=== PATIENT | female | born 1940 | race Caucasian/White ===

== ENCOUNTER 2020-03-26 08:06 | Outpatient (CLI) | payer MEDICARE, SELFPAY ==
--- NOTE | ~2020-03-26 | MM_ITS ---
EXAMINATION: MM screening marilia BI w nicolás HISTORY: Screening mammogram TECHNIQUE: Craniocaudal and mediolateral oblique 3-D tomosynthesis images were obtained and synthetic 2-D images were generated. CAD analysis was submitted and interpreted. COMPARISON: 09/29/2017, 09/16/2016, 12/17/2012 bilateral digital screening mammogram examinations BREAST PARENCHYMAL COMPOSITION: There are scattered areas of fibroglandular density. FINDINGS: There is no evidence of suspicious mass, calcification, or architectural distortion to sugg est malignancy in either breast. There has been no suspicious interval change. IMPRESSION: 1. No mammographic evidence of malignancy. 2. Recommend routine screening mammography in one year. BI-RADS Category 1: Negative Reviewed, dictated and finalized at location A.
== END 2020-03-26 08:07 | disposition home or self-care (01) ==
PROVIDERS: PCP Internal Medicine; Visit Provider Internal Medicine
DX: Z12.31 Encounter for screening mammogram for malignant neoplasm of breast (principal)
CPT/HCPCS: 77063; 77067

== ENCOUNTER 2021-08-23 00:31 | Inpatient (IN) | payer MEDICARE, SELFPAY ==
[2021-08-23] VITALS (9 sets, daily range): BP systolic 159–202; BP diastolic 79–117; PULSE 70–104; RESP 13–22; TEMP 35.8–36.6; O2SAT 95–99; BMI 34.7
--- NOTE | ~2021-08-23 | MR_ITS ---
EXAMINATION: MR brain/brain stem wo/w con EXAM DATE: 08/23/2021 16:57 INDICATION: Seizure. TECHNIQUE: Magnetic resonance imaging (MRI) of the brain/brain stem obtained without contrast. Sagit walt T1, axial diffusion, gradient echo (T2*), T1, T2, FLAIR sequences obtained. Patient was then inj ected with 18 cc intravenous Multihance contrast. Axial and coronal postcontrast T1 weighted sequence s obtained. Correlation is made to head CT earlier date. FINDINGS: Scattered small acute infarctions in the cerebellum bilaterally, the right occipital lobe, the right thalamus. There is mild microangiopathy. There is no acute hemorrhage seen on the T2*, a he mosiderin sensitive sequence. No intraparenchymal brain mass. The ventricles are normal in size. Th ere are no extra-axial collections. Flow voids are seen in the cerebral arteries on the T2-weighted sequences consistent with their expected patency. The right vertebral artery is dominant. Patient has had bilateral ocular lens surgery. Soft tissue is unremarkable. IMPRESSION: 1. Scattered small posterior circulation acute infarctions. 2. Mild microangiopathy. Reviewed, dictated and finalized at location G. CTOR OF PROGRAMMING
--- NOTE | ~2021-08-23 | CT_ITS ---
EXAMINATION: CT brain wo con DATE: 08/23/2021 00:57 INDICATION: Seizure TECHNIQUE: Computed tomography (CT) of the head was performed without intravenous contrast. The mA wa s adjusted according to patient size. Iterative reconstruction technique was employed. Exam dose: 68 1.00 mGy-cm total exam DLP. COMPARISON: 12/14/2004 CT brain FINDINGS: Vertebral and bilateral carotid siphon internal carotid artery calcification. There is nons pecific diminished attenuation of the cerebral white matter, likely due to chronic small vessel ische elly changes. There are bilateral basal ganglia chronic lacunar infarcts. No intracranial mass lesion or hemorrhage, midline shift or mass effect. No subdural or epidural rayo eugenia. No fracture or bone destruction of the cranial vault. IMPRESSION: Cerebral atherosclerosis and chronic small vessel ischemic changes of the cerebral white matter Bilateral chronic basal ganglia lacunar infarcts No acute intracranial finding Reviewed, dictated and finalized at Location A. Reviewed, dictated and finalized at location B. 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
--- NOTE | ~2021-08-23 | XR_ITS ---
EXAMINATION: XR chest 1V portable INDICATION: Altered mental status TECHNIQUE: Portable AP chest at 0056 hours COMPARISON: 12/14/2004 FINDINGS: The cardiac silhouette is enlarged. There are patchy airspace opacities of the right lung. No pleural effusion or pneumothorax is identified. IMPRESSION: 1. Enlargement of the cardiac silhouette which may be due to cardiomegaly and/or pericardial effusion . 2. Minimal airspace opacities of the right lung, consistent with atelectasis versus pneumonia. Reviewed, dictated and finalized at location A. OGEOLOGIST IMPRESSION: 1. Enlargement of the cardiac silhouette which may be due to cardiomegaly and/o r pericardial effusion. 2. Minimal airspace opacities of the right lung, consistent with atelectasis ve rsus pneumonia.
[2021-08-23 00:38] LABS: Glucose Point of Care 133 mg/dl (65-105)
--- NOTE | 2021-08-23 00:38 | ECG_ITS ---
Measurements Intervals [place] Rate: 76 P: NM: 0 QRS: 42 QRSD: 98 T: 32 QT: 419 QTc: 472 Interpretive Statements ATRIAL FIBRILLATION INCOMPLETE RIGHT BUNDLE BRANCH BLOCK BORDERLINE ST-T WAVE ABNORMALITY- DIFFUSE LEADS BASELINE ARTIFACT- I, II, III, AVF ABNORMAL ECG Electronically Signed On 08-23-2021 7:58:31 [employer]PECT[employer] by Hermann Crooks D.O.
--- NOTE | 2021-08-23 00:50 | ED.NEUROSD ---
HPI - Neuro Symptoms/Deficit General Chief Complaint: Suspected CVA Stated Complaint: ALTERED LOC Time Seen by Provider: 08/23/21 00:36 History of Present Illness HPI Narrative: Patient is a 81-year-old female who presents ER with altered mental status. Last known well was 11:45 PM on 08/22/2021. reports he was going to bed when he checked on her and she was not acting right. Patient is nonverbal at this time. Will not follow any commands. It was noted that her blood pressure was significantly elevated in the 200s systolic. Patient does have history of atrial fibrillation. She is on Xarelto. reports that patient had no complaints today and was having no issues. He does report that she had a nap earlier where she had some bleeding from her mouth. He believes she was grinding her teeth. She reports this happens to her intermittently. Related Data Home Medications Medication Instructions Recorded Confirmed aspirin 81 mg PO DAILY 08/23/21 atorvastatin 40 mg PO DAILY 08/23/21 carbidopa-levodopa tablet 08/23/21 dabigatran etexilate [Pradaxa] 75 mg PO BID 08/23/21 diltiazem HCl 180 mg PO DAILY 08/23/21 furosemide 20 mg PO DAILY 08/23/21 levothyroxine 125 mcg PO DAILY 08/23/21 omeprazole 08/23/21 paroxetine HCl 30 mg PO DAILY 08/23/21 propranolol 60 mg PO DAILY 08/23/21 rivaroxaban [Xarelto] mg 08/23/21 Allergies Allergy/AdvReac Type Severity Reaction Status Date / Time ERYTHROMYCIN LACTOBIONATE Allergy Mild RUPTURED Uncoded 08/23/21 04:14 ESOPHAGUS Review of Systems Review of Systems: ROS unobtainable: Yes unobtainable due to mental status [facility] Past Medical History Medical History (Updated 08/23/21 @ 06:23 by Heath Nation MD) Atrial fibrillation Depression History of CVA (cerebrovascular accident) Hypercholesterolemia Hypertension Mitral valve prolapse Parkinsons disease Surgical History Surgical History (Updated 08/23/21 @ 00:53 by Heath Nation MD) History of hysterectomy Social History Social History (Updated 08/23/21 @ 00:53 by Heath Nation MD) Smoking status: Unknown if ever smoked Exam Narrative: GENERAL: Well-appearing, well-nourished, and in no acute distress. HEAD: Normocephalic, atraumatic. EYES: PERRL and EOMI. ENT: Mucous membranes moist. CHEST: Clear to auscultation. No respiratory distress. HEART: Irregular regular rate and rhythm. Normal peripheral pulses. ABDOMEN: Soft, nontender, nondistended, normal active bowel sounds. EXTREMITIES: Normal range of motion. No edema. SKIN: Warm, dry, no rash. NEURO: Patient is awake alert. Will not follow commands. With sternal rub patient moves all extremities in response to pain. No facial droop. Unable to assess for drift. Course Course Emergency Course: Patient returning to normal baseline mental status. Blood pressure improved 161/83 mmHg. Patient has been able to perform NIH stroke scale exam without issue. Suspect patient may have had a seizure. Vital Signs Vital signs: Vital Signs Temperature 96.4 F L 08/23/21 00:30 Pulse Rate 78 08/23/21 00:30 Respiratory Rate 18 08/23/21 00:30 Blood Pressure 202/108 H 08/23/21 00:30 Pulse Oximetry 96 08/23/21 00:30 Temperature 96.4 F L 08/23/21 00:30 Pulse Rate 70 08/23/21 04:07 Respiratory Rate 17 08/23/21 04:07 Blood Pressure 182/90 H 08/23/21 04:07 Pulse Oximetry 97 08/23/21 04:07 MDM - Neuro Symptoms/Deficit Lab Data Result diagrams: 08/23/21 00:52 08/23/21 00:52 Labs: Lab Results 08/23/21 08/23/21 08/23/21 Range/Units 00:36 00:52 00:52 WBC 10.0 (4.5-10.0) K/mm3 RBC 4.79 (4.2-5.4) M/mm3 Hgb 14.5 (12.0-15.0) g/dL Hct 43.3 (37.0-47.0) % MCV 90.4 (80-100) fl MCH 30.3 (26-34) pg MCHC 33.5 (32-36) g/dl RDW 13.9 (11.5-14.5) % Plt Count 324 (150-375) k/mm3 MPV 10.5 H (7.4-10.4) fl Immature Gran % (Auto) 0.4 (0-0.
[2021-08-23] MEDS: hydrALAZINE HCL 20 MG/ML VIAL 10 MG IV PUSH (00:59)
[2021-08-23] MEDS: ONDANSETRON INJ 4 MG/2 ML VIAL IV PUSH ×3 (03:18→14:11)
[2021-08-23 03:20] LABS: INR 1.7; Partial Thromboplastin Time 35.4 SECONDS (22.3-36.8); Prothrombin Time 19.2 Seconds (11.1-14.7)
[2021-08-23 03:37] LABS: Basophils Absolute Auto 0.1 K/mm3 (0.0-0.1); Basophils Percent Auto 0.5 % (0.2-1.2); Eosinophils Absolute Auto 0.5 K/mm3 (0-0.3); Eosinophils Percent Auto 4.9 % (0-4.4); Hematocrit 43.3 % (37.0-47.0); Hemoglobin 14.5 g/dL (12.0-15.0); Immature Granulocyte Absolute 0.04 K/mm3 (0.00-0.031); Immature Granulocyte Percent A 0.4 % (0-0.5); Lymphocytes Absolute Auto 3.93 K/mm3 (0.9-3.2); Lymphocytes Percent Auto 39.4 % (18.3-44.2); Mean Corpuscular HGB Conc 33.5 g/dl (32-36); Mean Corpuscular Hemoglobin 30.3 pg (26-34); Mean Corpuscular Volume 90.4 fl (80-100); Mean Platelet Volume 10.5 fl (7.4-10.4); Monocytes Absolute Auto 0.9 K/mm3 (0.1-0.6); Monocytes Percent Auto 9.1 % (2.6-8.5); Neutrophils Absolute Auto 4.6 K/mm3 (1.3-6.7); Neutrophils Percent Auto 45.7 % (45.5-73.1); Platelet Count Result 324 k/mm3 (150-375); Red Blood Count 4.79 M/mm3 (4.2-5.4); Red Cell Distribution Width 13.9 % (11.5-14.5)
[2021-08-23 03:41] LABS: Add Urine Microscopic? YES; Appearance Urine Clear (Clear); Bilirubin Urine Negative (Negative); Blood Urine 1+ (Negative); Color Urine Straw (Yellow); Glucose Urine UA Negative (Negative); Ketones Urine Negative (Negative); Leukocyte Esterase Ur Negative LEU/UL (Negative); Mucus Urine Rare /lpf; Nitrate Urine Negative (Negative); Protein Urine 1+ mg/dL (Negative); Specific Grav Ur 1.011 (1.001-1.035); Urobilinogen Urine Negative mg/dL (<2.0); WBC Urine 0-3 /hpf
[2021-08-23 03:55] LABS: Alanine Aminotransferase < 6 U/L (4-35); Albumin Level 4.6 g/dL (3.5-5.1); Alkaline Phosphatase 126 U/L (38-126); Anion Gap 9 mmol/L (8-16); Aspartate Amino Transferase 24 U/L (14-36); Bilirubin,Total 0.6 mg/dL (0.2-1.3); Blood Urea Nitrogen 23 mg/dL (7-17); Calcium 9.2 mg/dL (8.4-10.2); Carbon Dioxide 27 mmol/L (22-30); Chloride 105 mmol/L (98-107); Estimated CRCL calculation 37 ml/min; Estimated Glomerular Filt Rate 43; Glucose 166 mg/dL (65-110); Potassium 3.9 mmol/L (3.4-5.0); Sodium 141 mmol/L (137-145); Troponin I < 0.012 ng/mL (0.000-0.034)
[2021-08-23 07:06] LABS: SARS-CoV-2 RNA PCR Negative
--- NOTE | 2021-08-23 07:23 | PC.NURSE ---
ordered pt heart healthy breakfast tray. pt resting in stretcher w/ symmetrical chest rise and fall. no acute distress observed. call light within reach.
[2021-08-23] MEDS: HYDROcodone/acetaminophen (*CRX) 5-325 MG TABLET 1 TAB PO (08:42)
--- NOTE | 2021-08-23 13:16 | PC.NURSE ---
Patient care report called to SREEKANTH Do in the [facility]. SREEKANTH Do denied any questions or concerns. Will transport patient to the chest pain center via stretcher.
--- NOTE | 2021-08-23 14:11 | ADMGEN ---
This patient, Magui Grijalva, was admitted to [facility]. Patient/family oriented to hospital policies and general routines including ID bracelet, bed and alarms, visiting hours, pain management, procedures, bathroom and other care routines, personal items, smoking policy, room service/diet, and visiting hours. Information on how to activate the Rapid Response Team has been discussed. Patient/Family are encouraged to report perceived risks to care and to ask questions if they do not understand what they are told or what they should do.
--- NOTE | 2021-08-23 15:20 | PCPTNOTE ---
Attempted PT evaluation this date, per RN patient is nauseated this afternoon and waiting to go for MRI, will attempt at a later time.
[2021-08-23] MEDS: LORazepam INJ (*CRX) 2 MG/ML VIAL 1 MG IV PUSH (15:50)
--- NOTE | 2021-08-23 17:01 | PM.IMHP ---
H&P: HPI History of Present Illness Date/Time: 08/23/21 17:01 ED-HPI Narrative: Patient is a 81-year-old female who presents ER with altered mental status. Last known well was 11:45 PM on 08/22/2021. reports he was going to bed when he checked on her and she was not acting right. Patient is nonverbal at this time. Will not follow any commands. It was noted that her blood pressure was significantly elevated in the 200s systolic. Patient does have history of atrial fibrillation. She is on Xarelto. reports that patient had no complaints today and was having no issues. He does report that she had a nap earlier where she had some bleeding from her mouth. He believes she was grinding her teeth. She reports this happens to her intermittently. currently patient is quite somnolent unable to provide any review of symptoms or history, upon arrival to emergency depart patient's systolic blood pressure was in 200 patient was given hydralazine and morphine her blood pressure did trended down, currently patient blood pressure is 167/79, patient with history of atrial fibrillation on diltiazem and anticoagulated with Xarelto, will resume patient's home medication and monitor. CT scan of the head showed chronic ischemic changes no acute injury patient is scheduled to have MRI further evaluate and will follow-up and further recommendation to follow. will have a PT OT evaluate the patient. patient admitted observation status. Chief Complaint: acute mental status change, Review of Systems Review of Systems: ROS unobtainable: Yes unobtainable due to medical condition PMFSH Past Medical History Medical History (Updated 08/23/21 @ 17:08 by Laisha Barros MD) Atrial fibrillation Depression History of CVA (cerebrovascular accident) Hypercholesterolemia Hypertension Mitral valve prolapse Parkinsons disease Surgical History Surgical History (Updated 08/23/21 @ 00:53 by Heath Nation MD) History of hysterectomy Social History Social History (Updated 08/23/21 @ 00:53 by Heath Nation MD) Smoking status: Former smoker Alcohol intake: never Substance use: never Spiritual care concerns: No Meds Home Medications and Allergies Home Medications Medication Instructions Recorded Confirmed Type aspirin 81 mg PO DAILY 08/23/21 08/23/21 History atorvastatin 40 mg PO QPM 08/23/21 08/23/21 History carbidopa-levodopa 1 tablet PO TID 08/23/21 08/23/21 History diltiazem HCl 180 mg PO DAILY 08/23/21 08/23/21 History furosemide 20 mg PO DAILY 08/23/21 08/23/21 History levothyroxine 125 mcg PO DAILY 08/23/21 08/23/21 History omeprazole 20 mg PO DAILY 08/23/21 08/23/21 History paroxetine HCl 30 mg PO DAILY 08/23/21 08/23/21 History propranolol 60 mg PO DAILY 08/23/21 08/23/21 History rivaroxaban [Xarelto] 15 mg PO DAILY 08/23/21 08/23/21 History Allergies Allergy/AdvReac Type Severity Reaction Status Date / Time erythromycin base AdvReac Severe Other Verified 08/23/21 14:20 Vital Signs Vital Signs - 24 hr 08/23/21 00:30 08/23/21 04:07 08/23/21 07:15 Temperature 96.4 F L Pulse Rate 78 70 82 Respiratory Rate 18 17 16 Blood Pressure 202/108 H 182/90 H 177/91 H Pulse Oximetry 96 97 98 08/23/21 08:27 08/23/21 11:24 08/23/21 14:00 Temperature Pulse Rate 84 104 H 95 Respiratory Rate 17 13 20 Blood Pressure 159/98 H 198/117 H 181/92 H Pulse Oximetry 98 99 97 08/23/21 15:42 08/23/21 16:00 Temperature Pulse Rate 87 96 Respiratory Rate 22 H Blood Pressure 167/79 H Pulse Oximetry 95 Exam Narrative: Patient is comfortable, NAD HEENT: eyes are clear and none icteric LUNGS: normal respiratory effort ABD: not distended Lower extremities: no edema SKIN: nonjaundiced Neuro: grossly intact. H&P: Results Labs Labs: Short CBC 08/23/21 Range/Units 00:52 WBC 10.0 (4.5-10.0) K/mm3 Hgb 14.5 (12.0-15.0) g/dL Hct 43.3 (37.0-47.0) % Plt Count 324 (150-375
[2021-08-23] MEDS: ATORVASTATIN 40 MG TABLET PO (20:04)
[2021-08-24] VITALS (8 sets, daily range): BP systolic 98–151; BP diastolic 64–92; PULSE 66–101; RESP 14–20; TEMP 36.5–37; O2SAT 92–96
--- NOTE | 2021-08-24 | ECHO_ITS ---
Patient Info Name: Magui Grijalva Age: 81 years : 1940 Gender: Female Ht: 64 in Wt: 201 lbs BSA: 2.07 m2 HR: 95 bpm BP: 139 / 64 mmHg Heart Rhythm: Atrial Fibrillation Technical Quality: Good Exam Date: 08/24/2021 9:27 AM Exam Location: [facility] Patient Status: Inpatient Admit Date: 08/23/2021 Staff Ordering Physician: Laisha Barros MD Director Safety: Roselia Alvarado RDCS Attending Provider: Solo Schwartz MD Exam Type: CA echo doppler color flow Study Info Indications I48.1 - Persistent atrial fibrillation Complete two-dimensional, color flow and Doppler transthoracic echocardiogram is performed. Summary 1. Complete two-dimensional, color flow and Doppler transthoracic echocardiogram is performed. 2. Left ventricular chamber dimension is normal. 3. Left ventricular systolic function is normal, estimated at 65-70%. 4. There is severely increased left ventricular wall thickness. 5. The left ventricular diastolic function is indeterminate. 6. Left atrial chamber dimension is severely enlarged. 7. Right atrial chamber dimension is severely enlarged. 8. There is moderate aortic valve sclerosis. 9. There is mild aortic valve calcification. 10. There is mild mitral valve regurgitation. 11. There is mild tricuspid valve regurgitation. 12. There is mild pulmonic regurgitation. 13. There is small pericardial effusion. Left Ventricle Left ventricular chamber dimension is normal. Left ventricular systolic function is normal, estimated at 65-70%. There is severely increased left ventricular wall thickness. The left ventricular diastolic function is indeterminate. Right Ventricle Right ventricular chamber dimension is normal. Right ventricular systolic function is normal. Left Atria Left atrial chamber dimension is severely enlarged. Right Atria Right atrial chamber dimension is severely enlarged. Atrial Septum Intact interatrial septum visualized by color flow imaging. Aortic Valve The aortic valve is trileaflet. There is moderate aortic valve sclerosis. There is no aortic valve stenosis. There is trace aortic valve regurgitation. There is mild aortic valve calcification. Pulmonic Valve The pulmonic valve is normal. There is no pulmonic valve stenosis. There is mild pulmonic regurgitation. Mitral Valve The mitral valve has thickened leaflets. There is no mitral valve stenosis. There is mild mitral valve regurgitation. Tricuspid Valve The tricuspid valve leaflets are normal. There is no significant tricuspid valve stenosis. There is mild tricuspid valve regurgitation. No pulmonary hypertension, estimated pulmonary arterial systolic pressure is 33 mmHg. Pericardium/Pleural The pericardium appears normal. There is small pericardial effusion. Inferior Vena Cava Normal inferior vena cava with >50% collapse upon inspiration consistent with normal right atrial pressure, 5 mmHg. Aorta The aortic root size at the sinus of Valsalva is normal. Left Ventricular Outflow Tract Name Value Normal LVOT 2D LVOT Diameter 2.2 cm LVOT Doppler LVOT Pea
[2021-08-24 04:41] LABS: Hemoglobin 13.4 g/dL (12.0-15.0); Mean Corpuscular HGB Conc 32.7 g/dl (32-36); Mean Corpuscular Hemoglobin 30.2 pg (26-34); Mean Corpuscular Volume 92.3 fl (80-100); Mean Platelet Volume 10.4 fl (7.4-10.4); Platelet Count Result 262 k/mm3 (150-375); Red Blood Count 4.44 M/mm3 (4.2-5.4); Red Cell Distribution Width 13.9 % (11.5-14.5); White Blood Count 10.9 K/mm3 (4.5-10.0)
[2021-08-24 05:14] LABS: Anion Gap 7 mmol/L (8-16); Blood Urea Nitrogen 20 mg/dL (7-17); Calcium 8.8 mg/dL (8.4-10.2); Carbon Dioxide 28 mmol/L (22-30); Chloride 103 mmol/L (98-107); Estimated CRCL calculation 44 ml/min; Estimated Glomerular Filt Rate 53; Glucose 115 mg/dL (65-110); Potassium 3.2 mmol/L (3.4-5.0); Sodium 138 mmol/L (137-145)
[2021-08-24] MEDS: LEVOTHYROXINE SODIUM 125 MCG TABLET PO (06:10)
[2021-08-24] MEDS: PARoxetine 10 MG TABLET 30 MG PO (08:34)
[2021-08-24] MEDS: PROPRANOLOL HCL 60 MG CAPSULE CR PO (08:34)
[2021-08-24] MEDS: CARBIDOPA/LEVODOPA 25/100 MG TABLET 1 TABLET PO ×3 (08:34→17:43)
[2021-08-24] MEDS: RIVAROXABAN 15 MG TABLET PO (08:34)
[2021-08-24] MEDS: dilTIAZem HCL CD 180 MG CAP.ER.24H PO (08:35)
[2021-08-24] MEDS: FUROSEMIDE 20 MG TABLET PO (08:35)
[2021-08-24] MEDS: PANTOPRAZOLE 40 MG TABLET PO (08:35)
[2021-08-24] MEDS: ASPIRIN 81 MG ENTERIC TABLET PO (08:35)
--- NOTE | 2021-08-24 13:42 | PM.IMPN ---
Progress Note: A&P Assessment and Plan (1) Hypertensive urgency: Code(s): I16.0 - Hypertensive urgency Status: Acute Assessment and Plan: ED-[facility] Narrative: Patient is a 81-year-old female who presents ER with altered mental status. Last known well was 11:45 PM on 08/22/2021. reports he was going to bed when he checked on her and she was not acting right. Patient is nonverbal at this time. Will not follow any commands. It was noted that her blood pressure was significantly elevated in the 200s systolic. Patient does have history of atrial fibrillation. She is on Xarelto. reports that patient had no complaints today and was having no issues. He does report that she had a nap earlier where she had some bleeding from her mouth. He believes she was grinding her teeth. She reports this happens to her intermittently. 08/23/2021 interval history: currently patient is quite somnolent unable to provide any review of symptoms or history, upon arrival to emergency depart patient's systolic blood pressure was in 200 patient was given hydralazine and morphine her blood pressure did trended down, currently patient blood pressure is 167/79, patient with history of atrial fibrillation on diltiazem and anticoagulated with Xarelto, will resume patient's home medication and monitor. CT scan of the head showed chronic ischemic changes no acute injury patient is scheduled to have MRI further evaluate and will follow-up and further recommendation to follow. will have a PT OT evaluate the patient. 08/24/2021 interval history: MRI of the brain showed scattered small posterior circulation acute infarct, patient has history of atrial bili and chronically anticoagulated with Xarelto taking aspirin, patient clinical symptoms have improved today patient is much more alert and oriented and communicates, patient will be seen by Neurology and further recommendation to follow, patient be seen by PT OT and patient will benefit going into acute rehab, patient has been is present in the room and give all the updates and also all the questions. (2) Altered mental status: Code(s): R41.82 - Altered mental status, unspecified Status: Acute Assessment and Plan: etiology uncertain CT scan of the head did not show any acute injury MRI of the brain is pending will follow-up (3) Hypertension: Code(s): I10 - Essential (primary) hypertension Status: Inactive Assessment and Plan: upon arrival patient systolic blood pressure was 200s patient was given hydralazine and morphine, blood pressure is trending down, will continue to monitor. (4) Atrial fibrillation: Code(s): I48.91 - Unspecified atrial fibrillation Status: Inactive Assessment and Plan: rate is controlled patient on diltiazem and anticoagulated with Xarelto. Subjective Date/time seen: 08/24/21 13:42 ED-HPI Narrative: Patient is a 81-year-old female who presents ER with altered mental status. Last known well was 11:45 PM on 08/22/2021. reports he was going to bed when he checked on her and she was not acting right. Patient is nonverbal at this time. Will not follow any commands. It was noted that her blood pressure was significantly elevated in the 200s systolic. Patient does have history of atrial fibrillation. She is on Xarelto. reports that patient had no complaints today and was having no issues. He does report that she had a nap earlier where she had some bleeding from her mouth. He believes she was grinding her teeth. She reports this happens to her intermittently. 08/23/2021 Interval history: currently patient is quite somnolent unable to provide any review of symptoms or history, upon arrival to emergency depart patient's systolic blood pressure was in 200 patient was given hydralazine and morphine her blood pressure did trended down, currently patient blood pressure is 167/79, patient with history of atri
--- NOTE | 2021-08-24 15:58 | WPDNEURCNPN ---
Assessment and Plan Additional Plan 1 bilateral cerebellar infarct, right occipital lobe right thalamic infarct2 atrial fibrillation 3 biatrial severe enlargement with moderate aortic valve sclerosis 4improving mental status 5 continue the anticoagulation Consult date: 08/24/21 HPI: Magui Grijalva is a 81 year old female admitted to the hospital for the complaints of change in the mental status reported he was going to bed when he checked on her and she was not acting right she was nonverbal at the time of initial visit and was not able to follow the verbal commands a blood pressure was significantly elevated she does have ongoing history of atrial fibrillation and has been on Xarelto by the time she was seen by the hospitalist she was somnolent she has received hydralazine and morphine in the emergency room with a blood pressure trending downward all the home medications were continued CT scan of the head documented no acute bleed MRI was pending, she is a former smoker never alcohol intake a never substance abuse and does have ongoing history of atrial fibrillation with hypertension mitral valve prolapse and additional Parkinson's disease Review of Systems Review of Systems: All systems reviewed & are unremarkable except as noted in HPI and below PMFSH Past Medical History Medical History Atrial fibrillation Depression History of CVA (cerebrovascular accident) Hypercholesterolemia Hypertension Mitral valve prolapse Parkinsons disease Surgical History Surgical History History of hysterectomy Social History Social History Smoking status: Former smoker Alcohol intake: never Substance use: never Spiritual care concerns: No Meds Home Medications and Allergies Home Medications Medication Instructions Recorded Confirmed Type aspirin 81 mg PO DAILY 08/23/21 08/23/21 History atorvastatin 40 mg PO QPM 08/23/21 08/23/21 History carbidopa-levodopa 1 tablet PO TID 08/23/21 08/23/21 History diltiazem HCl 180 mg PO DAILY 08/23/21 08/23/21 History furosemide 20 mg PO DAILY 08/23/21 08/23/21 History levothyroxine 125 mcg PO DAILY 08/23/21 08/23/21 History omeprazole 20 mg PO DAILY 08/23/21 08/23/21 History paroxetine HCl 30 mg PO DAILY 08/23/21 08/23/21 History propranolol 60 mg PO DAILY 08/23/21 08/23/21 History rivaroxaban [Xarelto] 15 mg PO DAILY 08/23/21 08/23/21 History Allergies Allergy/AdvReac Type Severity Reaction Status Date / Time erythromycin base AdvReac Severe Other Verified 08/23/21 14:20 Vital Signs Vital Signs - 24 hr 08/23/21 16:00 08/23/21 20:00 08/24/21 00:00 Temperature 36.6 C 36.5 C Pulse Rate 96 89 85 Respiratory Rate 16 14 Blood Pressure 166/94 H 151/84 H Pulse Oximetry 96 94 08/24/21 04:00 08/24/21 08:00 08/24/21 08:34 Temperature 36.6 C 36.7 C Pulse Rate 84 90 99 Respiratory Rate 16 20 Blood Pressure 139/64 140/79 Pulse Oximetry 92 95 08/24/21 12:00 08/24/21 14:11 Temperature 37.0 C Pulse Rate 83 70 Respiratory Rate 16 16 Blood Pressure 98/76 L 133/90 Pulse Oximetry 95 96 Exam Const: General: comfortable, no acute distress, alert, awake and in distress Nutritional Appearance: overweight Orientation/consciousness: oriented to person, oriented to place and oriented to time Limitations: physical limitations HENMT: Head: normal to inspection and normocephalic Ears: hearing grossly normal bilaterally General nose exam: Normal external nose present Face and sinus: normal facial exam Mouth: Yes Normal oral and palatal mucosa present Eyes: General: appearance normal, both eyes and all related structures Visual Ansari: abnormal by confrontation Alignment and Position: alignment normal Periorbital: periorbital findings normal Eyelids: eyelids normal Conjunctivae: conjunctivae normal Sclera: sclerae n
[2021-08-24] MEDS: ATORVASTATIN 40 MG TABLET PO (21:06)
[2021-08-25] VITALS (8 sets, daily range): BP systolic 111–139; BP diastolic 59–99; PULSE 50–84; RESP 17–21; TEMP 35.7–36.6; O2SAT 19–96; BMI 34.2
[2021-08-25] MEDS: LEVOTHYROXINE SODIUM 125 MCG TABLET PO (06:00)
[2021-08-25 06:11] LABS: Hematocrit 45.9 % (37.0-47.0); Hemoglobin 14.6 g/dL (12.0-15.0); Mean Corpuscular HGB Conc 31.8 g/dl (32-36); Mean Corpuscular Hemoglobin 30.5 pg (26-34); Mean Platelet Volume 10.4 fl (7.4-10.4); Platelet Count Result 244 k/mm3 (150-375); Red Blood Count 4.78 M/mm3 (4.2-5.4); Red Cell Distribution Width 13.7 % (11.5-14.5); White Blood Count 8.2 K/mm3 (4.5-10.0)
[2021-08-25 06:27] LABS: Anion Gap 7 mmol/L (8-16); Blood Urea Nitrogen 23 mg/dL (7-17); Calcium 8.4 mg/dL (8.4-10.2); Carbon Dioxide 27 mmol/L (22-30); Chloride 103 mmol/L (98-107); Estimated CRCL calculation 40 ml/min; Estimated Glomerular Filt Rate 48; Glucose 118 mg/dL (65-110); Potassium 3.3 mmol/L (3.4-5.0); Sodium 137 mmol/L (137-145)
[2021-08-25] MEDS: CARBIDOPA/LEVODOPA 25/100 MG TABLET 1 TABLET PO ×3 (08:47→16:34)
[2021-08-25] MEDS: ASPIRIN 81 MG ENTERIC TABLET PO (08:47)
[2021-08-25] MEDS: dilTIAZem HCL CD 180 MG CAP.ER.24H PO (08:47)
[2021-08-25] MEDS: PARoxetine 10 MG TABLET 30 MG PO (08:47)
[2021-08-25] MEDS: FUROSEMIDE 20 MG TABLET PO (08:47)
[2021-08-25] MEDS: PROPRANOLOL HCL 60 MG CAPSULE CR PO (08:47)
[2021-08-25] MEDS: PANTOPRAZOLE 40 MG TABLET PO (08:47)
[2021-08-25] MEDS: RIVAROXABAN 15 MG TABLET PO (08:47)
[2021-08-25] MEDS: ACETAMINOPHEN 325 MG TABLET 650 MG PO (10:24)
--- NOTE | 2021-08-25 14:57 | PM.IMPN ---
Progress Note: A&P Assessment and Plan (1) Hypertensive urgency: Code(s): I16.0 - Hypertensive urgency Status: Acute Assessment and Plan: ED-HPI Narrative: Patient is a 81-year-old female who presents ER with altered mental status. Last known well was 11:45 PM on 08/22/2021. reports he was going to bed when he checked on her and she was not acting right. Patient is nonverbal at this time. Will not follow any commands. It was noted that her blood pressure was significantly elevated in the 200s systolic. Patient does have history of atrial fibrillation. She is on Xarelto. reports that patient had no complaints today and was having no issues. He does report that she had a nap earlier where she had some bleeding from her mouth. He believes she was grinding her teeth. She reports this happens to her intermittently. 08/23/2021 interval history: currently patient is quite somnolent unable to provide any review of symptoms or history, upon arrival to emergency depart patient's systolic blood pressure was in 200 patient was given hydralazine and morphine her blood pressure did trended down, currently patient blood pressure is 167/79, patient with history of atrial fibrillation on diltiazem and anticoagulated with Xarelto, will resume patient's home medication and monitor. CT scan of the head showed chronic ischemic changes no acute injury patient is scheduled to have MRI further evaluate and will follow-up and further recommendation to follow. will have a PT OT evaluate the patient. 08/24/2021 interval history: MRI of the brain showed scattered small posterior circulation acute infarct, patient has history of atrial bili and chronically anticoagulated with Xarelto taking aspirin, patient clinical symptoms have improved today patient is much more alert and oriented and communicates, patient will be seen by Neurology and further recommendation to follow, patient be seen by PT OT and patient will benefit going into acute rehab, patient has been is present in the room and give all the updates and also all the questions. 08/25/2021 interval history: MRI of the brain showed scattered small posterior circulation acute infarct, patient has history of atrial fibrillation and chronically anticoagulated with Xarelto taking aspirin, patient clinical symptoms have improved today patient is much more alert and oriented and communicates, however patient unable to ambulate by herself and requiring assistance, patient unsteady on her feet patient, seen by Neurology and further recommendation to follow, patient will be seen by PT OT and patient will benefit going into acute rehab, patient has been is present in the room and give all the updates and also answed all the questions. (2) Altered mental status: Code(s): R41.82 - Altered mental status, unspecified Status: Acute Assessment and Plan: etiology uncertain CT scan of the head did not show any acute injury MRI of the brain is pending will follow-up (3) Hypertension: Code(s): I10 - Essential (primary) hypertension Status: Inactive Assessment and Plan: upon arrival patient systolic blood pressure was 200s patient was given hydralazine and morphine, blood pressure is trending down, will continue to monitor. (4) Atrial fibrillation: Code(s): I48.91 - Unspecified atrial fibrillation Status: Inactive Assessment and Plan: rate is controlled patient on diltiazem and anticoagulated with Xarelto. Subjective Date/time seen: 08/25/21 14:57 08/25/2021 interval history: MRI of the brain showed scattered small posterior circulation acute infarct, patient has history of atrial fibrillation and chronically anticoagulated with Xarelto taking aspirin, patient clinical symptoms have improved today patient is much more alert and oriented and communicates, however patient unable to ambulate by herself and requiring assistance, harmony
--- NOTE | 2021-08-25 15:08 | PC.NURSE ---
Patient to go to medical room 342.
--- NOTE | 2021-08-25 15:20 | PC.NURSE ---
[facility] faxed at [address] [place] [address]. Patient to go to room 342.
--- NOTE | 2021-08-25 16:08 | PC.NURSE ---
Report given to SREEKANTH Mcdermott at 1608. All questions answered and plan of care reviewed. Patient to transfer by wheel chair to 3 medical room 342.
[2021-08-25] MEDS: ATORVASTATIN 40 MG TABLET PO (20:36)
[2021-08-26] VITALS (7 sets, daily range): BP systolic 113–175; BP diastolic 58–101; PULSE 54–86; RESP 16–18; TEMP 35.6–36.7; O2SAT 93–97
[2021-08-26] MEDS: ACETAMINOPHEN 325 MG TABLET 650 MG PO (03:02)
[2021-08-26 05:35] LABS: Hematocrit 41.9 % (37.0-47.0); Hemoglobin 13.9 g/dL (12.0-15.0); Mean Corpuscular HGB Conc 33.2 g/dl (32-36); Mean Corpuscular Hemoglobin 30.3 pg (26-34); Mean Corpuscular Volume 91.3 fl (80-100); Platelet Count Result 268 k/mm3 (150-375); Red Blood Count 4.59 M/mm3 (4.2-5.4); Red Cell Distribution Width 13.6 % (11.5-14.5); White Blood Count 8.4 K/mm3 (4.5-10.0)
[2021-08-26 05:53] LABS: Anion Gap 5 mmol/L (8-16); Blood Urea Nitrogen 23 mg/dL (7-17); Calcium 8.6 mg/dL (8.4-10.2); Carbon Dioxide 34 mmol/L (22-30); Chloride 100 mmol/L (98-107); Estimated CRCL calculation 37 ml/min; Estimated Glomerular Filt Rate 43; Glucose 143 mg/dL (65-110); Potassium 3.4 mmol/L (3.4-5.0); Sodium 139 mmol/L (137-145)
[2021-08-26] MEDS: LEVOTHYROXINE SODIUM 125 MCG TABLET PO (06:09)
[2021-08-26 07:56] LABS: Glucose Point of Care 109 mg/dl (65-105)
[2021-08-26] MEDS: PROPRANOLOL HCL 60 MG CAPSULE CR PO (08:58)
[2021-08-26] MEDS: CARBIDOPA/LEVODOPA 25/100 MG TABLET 1 TABLET PO ×2 (08:58→12:42)
[2021-08-26] MEDS: FUROSEMIDE 20 MG TABLET PO (08:59)
[2021-08-26] MEDS: ASPIRIN 81 MG ENTERIC TABLET PO (08:59)
[2021-08-26] MEDS: PARoxetine 10 MG TABLET 30 MG PO (08:59)
[2021-08-26] MEDS: RIVAROXABAN 15 MG TABLET PO (08:59)
[2021-08-26] MEDS: PANTOPRAZOLE 40 MG TABLET PO (08:59)
[2021-08-26] MEDS: POTASSIUM CHLORIDE 20 MEQ TABLET 40 MEQ PO (09:00)
--- NOTE | 2021-08-26 10:11 | P.NEURO_ITS ---
Neurology EEG Report General Information Date of Study: 08/23/21 TEST eeg DIAGNOSIS Seizures CONDITION OF RECORDING drowsy and sleep EEG NUMBER [id number] CLINICAL HISTORY patient was unable to give specific history, she was found by her confused and disoriented. EEG DESCRIPTION Low-voltage 15 to 21 hertz per 2nd beta activity seen diffusely admixed with intermittent 5 to 7 hertz per 2nd theta during drowsiness. Bilateral symmetrica l sleep activity seen with symmetrical spindles. Hyperventilation not done. Photic stimulation not done. Non paroxysmal. Nonfocal. Nonlateralizing. IMPRESSION No significant abnormalities noted in this tracing particularly there is no evidence of paroxysmal discharge or asymmetry clinical correlation recommended.
[2021-08-26] MEDS: dilTIAZem HCL CD 180 MG CAP.ER.24H PO (10:16)
--- NOTE | 2021-08-26 11:14 | WPDCDIQUERY2 ---
CDI Query Clarification Request -08/23 MRI impression: Scattered small posterior circulation acute infarctions - MRI of the brain showed scattered small posterior circulation acute infarct has been documented. -Coders cannot code a diagnosis from documentation of MRI findings. Please clarify/document if there is a corresponding diagnosis for above findings. <Roselia Barnhart RN - Last Filed: 08/26/21 11:18> Clarified Diagnosis (1) Acute CVA (cerebrovascular accident): Code(s): I63.9 - Cerebral infarction, unspecified <Roselia Barnhart RN - Last Filed: 08/26/21 11:18> Status: Acute <Roselia Barnhart RN - Last Filed: 08/26/21 11:18> Assessment and Plan: MRI of the brain showed scattered small posterior circulation acute infarct patient has acute CVA <Laisha Barros MD - Last Filed: 09/07/21 15:22>
--- NOTE | 2021-08-26 14:05 | PM.DS ---
DS: Admitting Diagnosis Discharge Date 08/26/2021 Admitting Diagnosis acute mental status change DS: Discharge Diagnosis Discharge Diagnosis (1) Hypertensive urgency: Code(s): I16.0 - Hypertensive urgency Status: Acute Assessment and Plan: ED-HPI Narrative: Patient is a 81-year-old female who presents ER with altered mental status. Last known well was 11:45 PM on 08/22/2021. reports he was going to bed when he checked on her and she was not acting right. Patient is nonverbal at this time. Will not follow any commands. It was noted that her blood pressure was significantly elevated in the 200s systolic. Patient does have history of atrial fibrillation. She is on Xarelto. reports that patient had no complaints today and was having no issues. He does report that she had a nap earlier where she had some bleeding from her mouth. He believes she was grinding her teeth. She reports this happens to her intermittently. 08/23/2021 interval history: currently patient is quite somnolent unable to provide any review of symptoms or history, upon arrival to emergency depart patient's systolic blood pressure was in 200 patient was given hydralazine and morphine her blood pressure did trended down, currently patient blood pressure is 167/79, patient with history of atrial fibrillation on diltiazem and anticoagulated with Xarelto, will resume patient's home medication and monitor. CT scan of the head showed chronic ischemic changes no acute injury patient is scheduled to have MRI further evaluate and will follow-up and further recommendation to follow. will have a PT OT evaluate the patient. 08/24/2021 interval history: MRI of the brain showed scattered small posterior circulation acute infarct, patient has history of atrial bili and chronically anticoagulated with Xarelto taking aspirin, patient clinical symptoms have improved today patient is much more alert and oriented and communicates, patient will be seen by Neurology and further recommendation to follow, patient be seen by PT OT and patient will benefit going into acute rehab, patient has been is present in the room and give all the updates and also all the questions. 08/25/2021 interval history: MRI of the brain showed scattered small posterior circulation acute infarct, patient has history of atrial fibrillation and chronically anticoagulated with Xarelto taking aspirin, patient clinical symptoms have improved today patient is much more alert and oriented and communicates, however patient unable to ambulate by herself and requiring assistance, patient unsteady on her feet patient, seen by Neurology and further recommendation to follow, patient will be seen by PT OT and patient will benefit going into acute rehab, patient has been is present in the room and give all the updates and also answed all the questions. (2) Altered mental status: Code(s): R41.82 - Altered mental status, unspecified Status: Acute Assessment and Plan: etiology uncertain CT scan of the head did not show any acute injury MRI of the brain is pending will follow-up (3) Hypertension: Code(s): I10 - Essential (primary) hypertension Status: Inactive Assessment and Plan: upon arrival patient systolic blood pressure was 200s patient was given hydralazine and morphine, blood pressure is trending down, will continue to monitor. (4) Atrial fibrillation: Code(s): I48.91 - Unspecified atrial fibrillation Status: Inactive Assessment and Plan: rate is controlled patient on diltiazem and anticoagulated with Xarelto. DS: Summary Hospital Course Reason for hospitalization: ED-HPI Narrative: Patient is a 81-year-old female who presents ER with altered mental status. Last known well was 11:45 PM on 08/22/2021. reports he was going to bed when he checked on her and she was not acting right. Patient is nonverbal at this time. Doroteo
== END 2021-08-26 14:36 | disposition home health service (06) | DRG 66 ==
LOC: ANHED 00:48 → ANH3MEDSUR 04:21 → ANHCPC 11:57 → ANH3MED 08-26 14:17 → ANHCPC 08-27 13:09
PROVIDERS: Admitting Provider Internal Medicine; Emergency Provider Emergency Medicine; PCP Internal Medicine; Visit Provider Family Medicine
DX: I63.9 Cerebral infarction, unspecified (principal); I16.0 Hypertensive urgency; Z20.822 Contact with and (suspected) exposure to COVID-19; Z87.891 Personal history of nicotine dependence; I48.91 Unspecified atrial fibrillation; F32.9 Major depressive disorder, single episode, unspecified; Z86.73 Personal history of transient ischemic attack (TIA), and cerebral infarction without residual deficits; E78.00 Pure hypercholesterolemia, unspecified; I10 Essential (primary) hypertension; I34.1 Nonrheumatic mitral (valve) prolapse; G20 Parkinson's disease; Z79.899 Other long term (current) drug therapy; Z79.82 Long term (current) use of aspirin; R41.82 Altered mental status, unspecified; Z79.01 Long term (current) use of anticoagulants
CPT/HCPCS: 36415; 70450; 70553; 71045; 80048; 80053; 81001; 82948; 84484; 85025; 85027; 85610; 85730; 93005; 93306; 95816; 96374; 96375; 96376; 97110; 97116; 97162; 97165; 97530; 97535; 99285; A9270; A9577; C9803; G0378; J0360; J2060; J2405; U0003; U0005

== ENCOUNTER 2023-07-15 08:56 | Emergency (ER) | payer MEDICARE, SELFPAY ==
--- NOTE | 2023-07-15 | ECG_ITS ---
Measurements Intervals [place] Rate: 74 P: CO: 0 QRS: 52 QRSD: 103 T: 57 QT: 438 QTc: 486 Interpretive Statements ATRIAL FIBRILLATION INCOMPLETE RIGHT BUNDLE BRANCH BLOCK BORDERLINE ST-T WAVE ABNORMALITY- ANTEROLAT/INF LEADS BASELINE ARTIFACT- I, III, AVL, V1, V3 ABNORMAL ECG COMPARED TO ECG 08/23/2021 00:43:03 NO SIGNIFICANT CHANGES Electronically Signed On 07-15-2023 10:06:00 [employer]ICE IN[employer]CTOR by Hermann Crooks D.O.
--- NOTE | ~2023-07-15 | CT_ITS ---
EXAMINATION: CTA brain carotid DATE: 07/15/2023 09:11 INDICATION: Cerebrovascular accident. Right hemiparesis. TECHNIQUE: Computed tomographic angiography (CTA) of the head was performed with 100 mL Omnipaque-350 intravenous contrast. CTA of the neck was performed with intravenous contrast. Automated exposure co ntrol and iterative reconstruction technique were employed. The dose-length product was 1156.51 mGy-c m. Maximum intensity projection and volume rendered 3D-reconstructions were created by the technProjectioneeringi st on a separate workstation. COMPARISON: Head CT 07/15/2023, brain MRI 08/23/2021 FINDINGS: HEAD CTA: There are old infarcts in the cerebellum bilaterally. There are old infarcts in right occip ital lobe and right thalamus. There is an old infarct in right parietal occipital region. There are s cattered areas of low attenuation in the cerebral white matter. There is no intracranial hemorrhage, acute infarction, or abnormal intracranial mass lesion. The ventricles are normal in size. There is m ild mucosal thickening in the ethmoid sinuses. The mastoid air cells are normal. There are likely barron nges of ocular lens replacement surgeries. Right vertebral artery is dominant. There is no significan t stenosis of basilar artery or the posterior cerebral arteries. There is occlusive thrombus in dista l left internal carotid artery and left posterior communicating artery. A right posterior communicati ng artery is not identified. Anterior to indicating artery is normal. There is no significant stenosi s of the anterior or middle cerebral arteries. NECK CTA: The visualized portions of the lung apices demonstrate smooth septal thickening, consistent with mild pulmonary edema. There is no significant stenosis of the vertebral arteries. There is plaq ue in the proximal internal carotid arteries. There is 0% stenosis of the proximal right internal car otid artery relative to normal distal artery lumen diameter (NASCET criteria). There is 0% stenosis o f the proximal left internal carotid artery relative to normal distal artery lumen diameter. There is moderate cervical spondylosis. IMPRESSION: 1. Occlusive acute thrombus in distal left internal carotid artery and left posterior communicating a rtery. No visible acute infarct. 2. Old infarcts involving the cerebellum, right occipital lobe, right parietal occipital region, and right thalamus. 3. Moderate nonspecific cerebral white matter disease, which likely represents chronic small vessel i schemic disease. 4. 0% stenosis of the proximal internal carotid arteries relative to normal distal artery lumen diame ters (NASCET criteria). Reviewed, dictated and finalized at location A. S DONOR RECRUITMENT REPRESENTATIVE IMPRESSION: 1. Occlusive acute thrombus in distal left internal carotid artery and left pos terior communicating artery. No visible acute infarct. 2. Old infarcts involving the cerebellum, right occipital lobe, right parietal occipital region, and right thalamus. 3. Moderate nonspecific cerebral white matter disease, which likely represents chronic small vessel ischemic disease. 4. 0% stenosis of the proximal internal carotid arteries relative to normal dis walt artery lumen diameters (NASCET criteria).
--- NOTE | ~2023-07-15 | XR_ITS ---
Portable chest x-ray Comparison: 08/23/2021 Clinical History: CVA Findings: Lungs are clear, without focal consolidation or pleural effusion. Cardiomediastinal silho uette is stable. Bones and soft tissues are unremarkable. Impression: Clear lungs. Stable cardiomegaly. Reviewed, dictated and finalized at location . TANK ASSAULT GUNNER Impression: Clear lungs. Stable cardiomegaly.
--- NOTE | ~2023-07-15 | CT_ITS ---
Non-contrast Head CT History: CVA COMPARISON: 08/23/2021 Technique: Axial non-contrast imaging of the brain was performed. Dose reduction technique was used on this scan by utilizing automated exposure control and iterative reconstruction technique. The dose -length product (DLP) was 605.33 mGy-cm. Findings: There is no evidence of intracranial hemorrhage or mass lesion. There is hypodensity focal ly in the posterior right parietal/occipital lobe, which could reflect focal infarct, likely subacute to chronic.. There is stable subtle hypodensity in the right parietal periventricular white matter, compatible with chronic microvascular ischemic change. Stable chronic lacunar infarcts the right exte rnal capsule region. The ventricles and subarachnoid spaces are normal in size. The calvarium appea rs normal. The visualized paranasal sinuses and mastoid air cells are clear. Impression: Possible subacute to chronic focal infarct in the right posterior parietal/occipital lobe. No definite acute infarct seen. No intracranial hemorrhage. Case discussed with Dr. Graves at 9:10 AM on 07/15/2023. Reviewed, dictated and finalized at location . ESE INSTRUCTOR Impression: Possible subacute to chronic focal infarct in the right posterior parietal/occi pital lobe. No definite acute infarct seen. No intracranial hemorrhage. Case discussed with Dr. Graves at 9:10 AM on 07/15/2023.
[2023-07-15 09:00] VITALS: BP 191/78; PULSE 72; RESP 18; TEMP 36.6; O2SAT 96
[2023-07-15 09:22] LABS: Glucose Point of Care 131 mg/dl (65-105)
[2023-07-15 09:30] VITALS: BP 204/90; PULSE 71; RESP 20; O2SAT 96
[2023-07-15 10:00] VITALS: BP 197/93; PULSE 67; RESP 22; O2SAT 96
--- NOTE | 2023-07-15 10:08 | ED.AMS ---
HPI - Altered Mental Status General Chief Complaint: Altered Mental Status Stated Complaint: code stroke, LKW 2199 last noc Time Seen by Provider: 07/15/23 09:03 Source: family and EMS Mode of arrival: ambulatory Limitations: clinical condition History of Present Illness HPI narrative: 82-year-old with a history of Parkinson's, AFib on Xarelto, hypertension was brought in from home with complaints of right-sided weakness which is noticed this morning but has been soon after he called the EMS upon their arrival patient was confused and was found to be weak on the right side. Upon arrival to the ER patient was able to move the right upper and lower extremity but is slightly confused she denied any headache. As per patient is been off Xarelto since [place] [facility] complaint: weakness (Right-sided) Time: 08:00 Timing confirmed by: spouse Severity: moderate Consistency of symptoms: waxing and waning Related Data Home Medications Medication Instructions Recorded Confirmed aspirin 81 mg tablet 81 mg PO DAILY 08/23/21 04/04/22 atorvastatin 40 mg tablet 40 mg PO QPM 08/23/21 04/04/22 carbidopa 25 mg-levodopa 100 mg 1 tablet PO TID 08/23/21 04/04/22 tablet diltiazem HCl 180 mg 180 mg PO DAILY 08/23/21 04/04/22 capsule,extended release 24 hr furosemide 20 mg tablet 20 mg PO DAILY 08/23/21 04/04/22 rivaroxaban 15 mg tablet (Xarelto) 15 mg PO DAILY 08/23/21 04/04/22 cetirizine 10 mg tablet (24Hour 10 mg PO DAILY PRN 04/04/22 04/04/22 Allergy) Allergies Allergy/AdvReac Type Severity Reaction Status Date / Time erythromycin base AdvReac Severe Other Verified 04/04/22 14:12 Review of Systems Constitutional: Constitutional: Reports no additional constitutional complaints Eyes: Eyes: Reports no additional eye complaints ENT: Reports system reviewed and no additional complaints, except as documented Cardiovascular: Cardiovascular: Reports no additional cardiovascular complaints Respiratory: Respiratory: Reports no additional respiratory complaints Musculoskeletal: Musculoskeletal: Reports no additional musculoskeletal complaints Neurologic: Reports as per HPI [facility] Past Medical History Medical History Atrial fibrillation Depression History of CVA (cerebrovascular accident) Hypercholesterolemia Hypertension Mitral valve prolapse Parkinsons disease Surgical History Surgical History History of hysterectomy Family History Family History (Reviewed 07/15/23 @ 10: by Dmitri Graves MD) Father Asthma Cancer Mother Cancer Sibling Hypertension Cerebrovascular accident Social History Social History Smoking status: Former smoker Alcohol intake: never Substance use: never Living arrangements: with family Occupation/Education: retired Spiritual care concerns: No Course Course Emergency Course: Patient upon arrival was alert and awake slightly confused but was able to move right upper and lower extremity patient was sent to the CT scan 15 minutes after arrival from the CT scan she started to have right-sided facial droop and weakness and she is more confused. I discussed the CT report with the and the family. CT showed and total occlusion of the internal carotid on the left. I discussed with Dr. Garza Stroke Neurology at [facility] recommended transferred the ER for acute intervention. Discussed with Dr. Francisco accepted the patient in transfer Vital Signs Vital signs: Vital Signs Temperature 36.6 C 07/15/23 09:00 Pulse Rate 72 07/15/23 09:00 Respiratory Rate 18 07/15/23 09:00 Blood Pressure 191/78 H 07/15/23 09:00 Pulse Oximetry 96 07/15/23 09:00 Oxygen Delivery Room Air 07/15/23 09:00 Temperature 36.6 C 07/15/23 09:00 Pulse Rate 72 07/15/23 09:00 Respiratory Rate 18 07/15/23 09:00
[2023-07-15 10:26] LABS: Basophils Percent Auto 0.4 % (0.2-1.2); Eosinophils Absolute Auto 0.3 K/mm3 (0-0.3); Eosinophils Percent Auto 3.6 % (0-4.4); Hematocrit 41.2 % (37.0-47.0); Hemoglobin 12.6 g/dL (12.0-15.0); Immature Granulocyte Absolute 0.02 K/mm3 (0.00-0.031); Immature Granulocyte Percent A 0.3 % (0-0.5); Lymphocytes Absolute Auto 1.25 K/mm3 (0.9-3.2); Lymphocytes Percent Auto 16.8 % (18.3-44.2); Mean Corpuscular HGB Conc 30.6 g/dl (32-36); Mean Corpuscular Hemoglobin 29.1 pg (26-34); Mean Corpuscular Volume 95.2 fl (80-100); Mean Platelet Volume 10.5 fl (7.4-10.4); Monocytes Absolute Auto 0.4 K/mm3 (0.1-0.6); Monocytes Percent Auto 5.8 % (2.6-8.5); Neutrophils Absolute Auto 5.4 K/mm3 (1.3-6.7); Neutrophils Percent Auto 73.1 % (45.5-73.1); Platelet Count Result 260 k/mm3 (150-375); Red Blood Count 4.33 M/mm3 (4.2-5.4); White Blood Count 7.4 K/mm3 (4.5-10.0)
[2023-07-15 10:28] VITALS: BP 199/98; PULSE 71; RESP 20; O2SAT 96
[2023-07-15 10:37] LABS: Alanine Aminotransferase 13 U/L (6-35); Albumin Level 4.1 g/dL (3.5-5.1); Alkaline Phosphatase 115 U/L (38-126); Anion Gap 10 mmol/L (8-16); Aspartate Amino Transferase 27 U/L (14-36); Bilirubin,Total 0.9 mg/dL (0.2-1.3); Blood Urea Nitrogen 19 mg/dL (7-17); Calcium 8.4 mg/dL (8.4-10.2); Carbon Dioxide 27 mmol/L (22-30); Chloride 103 mmol/L (98-107); Estimated CRCL calculation 40 ml/min; Estimated Glomerular Filt Rate 48; Glucose 137 mg/dL (65-110); Potassium 3.8 mmol/L (3.4-5.0); Sodium 140 mmol/L (137-145)
[2023-07-15 10:42] LABS: INR 1.1; Prothrombin Time 14.7 Seconds (11.1-14.7)
[2023-07-15 10:43] LABS: Partial Thromboplastin Time 29.7 SECONDS (22.3-36.8)
[2023-07-15 10:48] LABS: Troponin I < 0.012 ng/mL (0.000-0.034)
[2023-07-15] MEDS: HEPARIN SODIUM 5,000 UNITS/ML VIAL 5500 UNITS IV PUSH (11:00)
[2023-07-15] MEDS: HEPARIN SOD/D5W 100 UNITS/ML 25,000 UNITS/250 ML BAG 13 UNITS IV CONT (11:01)
[2023-07-15] MEDS: HEPARIN SODIUM 5,000 UNITS/ML VIAL 5000 UNITS (11:06)
== END 2023-07-15 11:15 | disposition short-term general hospital (02) ==
PROVIDERS: Emergency Provider Family Medicine; PCP Internal Medicine
DX: I63.9 Cerebral infarction, unspecified (principal); I48.91 Unspecified atrial fibrillation; G20.A1 Parkinson's disease without dyskinesia, without mention of fluctuations; Z79.01 Long term (current) use of anticoagulants; I10 Essential (primary) hypertension; E78.00 Pure hypercholesterolemia, unspecified; Z87.891 Personal history of nicotine dependence
CPT/HCPCS: 36415; 70450; 70496; 70498; 71045; 80053; 82948; 84484; 85025; 85610; 85730; 93005; 96374; 99285; J1644; Q9967